=== PATIENT | female | born 2000 | race Caucasian/White ===

== ENCOUNTER → 2021-08-17 14:46 | Outpatient (CLI) | payer SELFPAY ==
[2021-08-17 15:20] LABS: Color, Urine Yellow (Yellow); Glucose, Dipstick Normal (Normal); Ketone-Dipstick Negative (Negative); Leukocyte Esterase-Dipstick 500 /ul (Negative); Nitrite-Dipstick Negative (Negative); Occult Blood-Urine Negative /ul (Negative); Protein-Dipstick Negative (Negative); Urine Bilirubin Dipstick Negative (Negative); Urine Clarity Sl. Cloudy (Clear); Urine Urobilinogen Normal (Normal)
[2021-08-17 15:31] LABS: Absolute Lymphocyte Count 1.97 X10^3/uL (0.83-4.51); Basophil# 0.03 X10^3/uL; Basophil% 0.3 % (0-1); Eosinophil# 0.06 X10^3/uL; Eosinophils% 0.6 % (0-5); Hematocrit 35.1 % (37-47); Lymphocyte # 1.97 X10^3/ul (0.83-4.51); Lymphocyte % 20.1 % (19-41); Mean Corp Hgb Conc 34.2 g/dL (32-36); Mean Corpuscular Hgb 30.4 pg (27.0-32.0); Mean Corpuscular Volume 88.9 fL (81-99); Mean Platelet Vol. 10.6 fl (6.2-12.0); Monocyte% 7.2 % (0-10); NRBC Flagged by Analyzer 0 % (0-5); Neutrophil # 6.96 X10^3/uL (2.7-7.7); Neutrophil % 71.2 % (47-70); Platelet Count 233 K/mm3 (150-450); RBC Distribution Width CV 12.9 % (11.6-14.6); RBC Distribution Width SD 42.4 fl (35.1-43.9); Red Blood Count 3.95 M/mm3 (4.2-5.4); White Blood Count 9.8 K/mm3 (4.4-11.0)
[2021-08-17 15:48] LABS: Thyroid Stim Hormone (TSH) 1.58 uIU/mL (0.358-3.74)
[2021-08-17 16:26] LABS: Amphetamine Urine VISTA NEGATIVE (<1000 ng/mL); Barbiturate Urine VISTA NEGATIVE (< 200 ng/mL); Benzodiazepine Urine VISTA NEGATIVE (< 200 ng/mL); Cocaine Urine VISTA NEGATIVE (< 300 ng/mL); Ecstacy Urine VISTA NEGATIVE (< 500 ng/mL); Methadone Urine VISTA NEGATIVE (< 300 ng/mL); PCP Urine VISTA NEGATIVE (< 25 ng/mL); THC Urine VISTA NEGATIVE (< 50 ng/mL); Vista UDS pH Range 7
[2021-08-20 09:34] LABS: HIV - WCH Non-Reactive (Nonreactive); Hepatitis B Surface Antigen Non-Reactive (Nonreactive); Hepatitis C Antibody Non-Reactive (Nonreactive); Rubella IgG Reactive (Nonreactive); Syphilis Antibodies Non-reactive
[2021-08-21 00:06] LABS: Chlamydia By Nucleic Acid AMP Negative (Negative)
[2021-08-21 00:41] LABS: Gonococcus By Nucleic Acid AMP Negative (Negative)
[2021-08-23 14:16] LABS: HPV Reflexed? NOT INDICATED
== END ==
PROVIDERS: Visit Provider Obstetrics & Gynecology
DX: Z34.82 Encounter for supervision of other normal pregnancy, second trimester (principal); Z12.4 Encounter for screening for malignant neoplasm of cervix; Z11.3 Encounter for screening for infections with a predominantly sexual mode of transmission
CPT/HCPCS: 36415; 80307; 81002; 84443; 85025; 86703; 86762; 86780; 86803; 87086; 87088; 87340; 87491; 87591; 88175; G0145

== ENCOUNTER → 2021-10-15 10:09 | Outpatient (CLI) | payer SELFPAY ==
[2021-10-15 10:30] LABS: Hematocrit 33.5 % (37-47); Hemoglobin 11.4 g/dL (12.0-15.0); Mean Corpuscular Hgb 31.4 pg (27.0-32.0); Mean Corpuscular Volume 92.3 fL (81-99); Mean Platelet Vol. 9.8 fl (6.2-12.0); Platelet Count 244 K/mm3 (150-450); RBC Distribution Width CV 13.6 % (11.6-14.6); RBC Distribution Width SD 45.6 fl (35.1-43.9); Red Blood Count 3.63 M/mm3 (4.2-5.4)
[2021-10-15 10:55] LABS: Glucose Challenge Gest 1H 50g 137 mg/dL (70-140)
== END ==
PROVIDERS: Visit Provider Obstetrics & Gynecology
DX: Z34.82 Encounter for supervision of other normal pregnancy, second trimester (principal)
CPT/HCPCS: 36415; 82950; 85027

== ENCOUNTER → 2021-11-05 11:40 | Outpatient (CLI) | payer SELFPAY | PROVIDERS: Visit Provider Obstetrics & Gynecology | DX: Z34.83 Encounter for supervision of other normal pregnancy, third trimester (principal) | CPT/HCPCS: 36415; 86850 ==

== ENCOUNTER 2021-12-27 13:22 | Outpatient (CLI) | payer SELFPAY | END 2021-12-27 23:59 | disposition home or self-care (01) | LOC: LABSPEC 13:22 | PROVIDERS: Visit Provider Obstetrics & Gynecology | DX: Z36.85 Encounter for antenatal screening for Streptococcus B (principal) | CPT/HCPCS: 87081 ==

== ENCOUNTER 2022-01-26 09:10 | Outpatient (CLI) | payer SELFPAY ==
[2022-01-26 09:31] VITALS: BP 114/61; PULSE 104; PULSE 111; TEMP 37.4; O2SAT 95
[2022-01-26 09:59] VITALS: BMI 36.8
[2022-01-26 13:20] VITALS: TEMP 37.3
[2022-01-26 13:21] VITALS: BP 108/65; PULSE 80
--- NOTE | 2022-01-27 11:35 | PCM.PN.BLA ---
Progress Note HPI: 21-year-old at 40/4 weeks, PETER 01/22/2022 by LMP, presenting for spotting with wiping and contractions. Contractions irregular, not increasing in intensity. Reports normal movement. Denies headache, vision changes, chest pain or shortness of breath, fevers or chills, nausea or vomiting. complicated by: None MANAGER TALENT MANAGEMENT history: G1 current Medical history: Denies Surgical history: Denies Social history: Denies tobacco, alcohol, drug use Family history: Noncontributory Allergies: No known drug allergies Medications: vitamin Review of systems: Negative otherwise stated above Physical exam: Blood pressure 108/65, pulse 80 General: Patient in bed resting in no acute distress HEENT: Normocephalic/atraumatic Cardiorespiratory: No increased effort Abdomen: Soft, nontender, gravid Extremities: Minimal edema Cervical exam: 2 cm changed to 2.5 cm discharge, scant blood on glove nothing in bed heart rate:130/mod irina/+accel/no decel [place]: q2-10 min panel A neg Rubella immune Syphilis nonreactive HIV nonreactive Hep B/hep C negative/negative Gonorrhea/chlamydia negative/negative Group beta strep negative on 12/27/2021 Assessment/plan: 21-year-old G1 at 40/4 weeks presenting with contractions and spotting. Patient not in labor after 4 hours into repeat cervical exams. status reassuring. Spotting secondary to early labor and cervical change. As status was stable during monitoring, patient was discharged home with labor precautions. Patient to return for increased bleeding, increased intensity of contractions, leaking of fluid, decreased movement. She has induction of labor scheduled this week.
== END 2022-01-26 23:59 | disposition home or self-care (01) ==
LOC: WPOUT 09:17 → WP 09:18
PROVIDERS: Referring Provider Student in an Organized Health Care Education/Training Program; Visit Provider Student in an Organized Health Care Education/Training Program
DX: O26.853 Spotting complicating pregnancy, third trimester (principal); Z3A.40 40 weeks gestation of pregnancy
CPT/HCPCS: 59025; 59050; 99218; G0378

== ENCOUNTER 2022-01-27 21:30 | Inpatient (IN) | payer SELFPAY, OTHER ==
[2022-01-27 21:09] VITALS: BMI 36.8
[2022-01-27 21:19] VITALS: O2SAT 96
[2022-01-27 21:20] VITALS: BP 116/68; PULSE 114; TEMP 36.5; O2SAT 96
[2022-01-27] MEDS: Lactated Ringers 1,000 ML 50 ML IV (22:00)
[2022-01-27 22:14] LABS: Absolute Lymphocyte Count 2.18 X10^3/uL (0.83-4.51); Absolute Neutrophil Count 9.5 X10^3/uL (2.0-7.7); Basophil# 0.02 X10^3/uL; Basophil% 0.2 % (0-1); Eosinophil# 0.04 X10^3/uL; Eosinophils% 0.3 % (0-5); Hematocrit 36.1 % (37-47); Hemoglobin 12.5 g/dL (12.0-15.0); Lymphocyte # 2.18 X10^3/ul (0.83-4.51); Mean Corp Hgb Conc 34.6 g/dL (32-36); Mean Corpuscular Hgb 30.9 pg (27.0-32.0); Mean Corpuscular Volume 89.1 fL (81-99); Mean Platelet Vol. 10.8 fl (6.2-12.0); Monocyte# 1.03 X10^3/uL; NRBC Flagged by Analyzer 0 % (0-5); Neutrophil # 9.48 X10^3/uL (2.7-7.7); Platelet Count 203 K/mm3 (150-450); RBC Distribution Width CV 13.6 % (11.6-14.6); RBC Distribution Width SD 44.7 fl (35.1-43.9); Red Blood Count 4.05 M/mm3 (4.2-5.4); White Blood Count 12.8 K/mm3 (4.4-11.0)
[2022-01-27 22:16] VITALS: BP 117/70; PULSE 96; PULSE 97; TEMP 36.7; O2SAT 96
--- NOTE | 2022-01-27 22:35 | HP.PCM.OB_ITS ---
History and Physical Date of Admission: 01/27/22 HPI: 21-year-old at 40/5 weeks, PETER 01/22/2022 by LMP, presenting with contractions. Contractions worsening and more consistent. Denies leaking of fluid, vaginal bleedings. Reports movement. Denies headache, vision changes, chest pain or shortness of breath, nausea or vomiting, fevers or chills, diarrhea or constipation. complicated by: None ENTERPRISE ANALYST history: G1 current Medical history: Denies Surgical history: Denies Social history: Denies tobacco, alcohol, drug use Family history: Noncontributory Allergies: No known drug allergies Medications: vitamin Review of systems: Negative otherwise stated above Physical exam: Blood pressure 117/70, HR 96, T 98.1F, O2 sat 96%on RA General: Patient in bed resting in no acute distress HEENT: Normocephalic/atraumatic Cardiorespiratory: No increased effort, RRR. CTAB Abdomen: Soft, nontender, gravid Extremities: Minimal edema Musculoskeletal: Strength 5/5 throughout all extremities Neurologic: No focal deficits, cranial nerves II through XII grossly intact Cervical exam: 5 cm, AROM meconium heart rate:145/mod irina/+accel/no decel [place]: q3 panel A neg Rubella immune Syphilis nonreactive HIV nonreactive Hep B/hep C negative/negative Gonorrhea/chlamydia negative/negative Group beta strep negative on 12/27/2021 CBC, T&S, COVID pending Assessment/plan: 21-year-old at 40/5 weeks, PETER 01/22/2022 by LMP, admitted in labor. Uncomplicated . -Admit to labor and delivery -Routine orders -Meconium fluid. Plan for strategic accounts manager at delivery. -GBS negative -Expectant management
--- NOTE | 2022-01-27 22:40 | NURSING ---
dr mccloud requesting pt be on continuous electronic monitoring throughout labor d/t mec fluid with AROM.
[2022-01-27 23:46] VITALS: BP 107/55; PULSE 116; TEMP 36.6; O2SAT 97
[2022-01-28] VITALS (79 sets, daily range): BP systolic 91–191; BP diastolic 48–114; PULSE 81–163; RESP 18; TEMP 36.1–37.8; O2SAT 82–100
[2022-01-28] MEDS: Lactated Ringers 500 ML 999 ML IV ×3 (01:31→07:49)
[2022-01-28] MEDS: Lactated Ringers 1,000 ML 200 ML IV ×3 (03:40→13:49)
[2022-01-28] MEDS: Oxytocin 30 units/NS 500 ml 30 UNITS/500 ML IV.SOLN IV (06:29)
[2022-01-28] MEDS: fentaNYL-bupivacaine (epidural) 100 ML BAG EPIDURAL ×4 (07:05→12:15)
[2022-01-28] MEDS: Amnioinfusion- 0.9% NS 1,000 ML IV.SOLN. 1000 ML INTRA-UTER (08:27)
--- NOTE | 2022-01-28 11:27 | PCM.PN.BLA ---
Progress Note Late entry - Called to assess around 0400. CE 6-7/80/-1. Continued expectant management at that time. Pt did get epidural and pitocin started this morning. FSE and IUPC placed, amnioinfusion started by Dr. Axel Garcia covering 940-130 this morning for cat II tracing. CE now 9.5/90/0. Cervix very thin and on right side, decreased with bearing down efforts during contractions. Will recheck in 30 minutes. Cat II. Patient continues to make cervical change.
[2022-01-28] MEDS: Oxytocin 30 units/NS 500 ml 30 UNITS/500 ML IV.SOLN 334 UNITS IV (14:53)
--- NOTE | 2022-01-28 15:10 | EX.PCM.OBRPT ---
Maternal Data Information Final PETER: 01/22/22 Vaginal Delivery Operative Information Date of Procedure: 01/28/22 Pre-Operative Diagnosis: Alvarado intrauterine at term Post-Operative Diagnosis: Alvarado intrauterine at term Surgery / Procedure Performed: Vacuum Assisted Vaginal Delivery Type of Anesthesia: Epidural Estimated Blood Loss: 500cc Findings Description of Procedure: Indications/risk/benefits: Vacuum-assisted vaginal delivery for maternal exhaustion category 2 tracing. Patient admitted in active labor, artificial rupture of membranes with meconium fluid, patient progressed through labor to 10 cm. Maternal exhaustion noted along with category 2 tracing. Therefore decision for vacuum-assisted vaginal delivery was made to expedite delivery. Patient had adequate anesthesia with epidural. Bladder was drained with Aguayo catheter. head position confirmed KERI +2 station. All risk, benefits, alternatives discussed with patient. Risks include but are not limited to: Risk of maternal laceration, scalp abrasion, cephalohematoma, subgaleal hemorrhage, risk of shoulder dystocia. All questions answered. Patient consented. Operative note: head position confirmed. Vacuum placed 2 cm anterior to the posterior fontanelle. No maternal tissue in the vacuum. Vacuum utilized with good maternal effort, descent was noted with pushing. 1 pop-off. Once vacuum removed. head delivered via maternal efforts. No nuchal cord. Delivery of the body. Baby to maternal chest. Cord clamped and cut. Awaiting turpentine distiller and NICU staff present for vacuum delivery meconium. Second-degree laceration repaired in usual fashion. Right labial laceration repaired in usual fashion. Hemostatic. Left labial abrasion hemostatic without intervention. Spontaneous delivery of placenta. Infant A Gender: Male (1 minute): 8 (5 minute): 9
--- NOTE | 2022-01-28 17:18 | NURSING ---
Epidural cath removed, blue tip intact
[2022-01-28] MEDS: Ibuprofen 600 MG Tablet PO (22:27)
[2022-01-29] VITALS: BP 98/41; PULSE 101; RESP 18; TEMP 36.2; O2SAT 94
[2022-01-29 03:56] VITALS: BP 97/44; PULSE 93; RESP 16; TEMP 36.4; O2SAT 97
[2022-01-29 08:37] VITALS: BP 98/53; PULSE 79; RESP 16; TEMP 36.4; O2SAT 97
--- NOTE | 2022-01-29 08:45 | PCM.PN.OB ---
Subjective Subjective She is sore today, but overall pain controlled. OOB, ambulating without difficulty. No issues voiding. is nursing well. Denies heavy lochia. Requests discharge to home today. Objective Data Objective Data Vital Signs: Vital Signs Temp Pulse Resp BP Pulse Ox 97.5 F L 79 16 98/53 L 97 01/29/22 08:37 01/29/22 08:37 01/29/22 08:37 01/29/22 08:37 01/29/22 08:37 Oxygen Delivery Method Room Air Weight: 88.4 kg Body Mass Index (BMI) 36.8 Intake & Output: Intake and Output for Last 24 Hours 01/27/22 01/28/22 01/29/22 23:59 23:59 23:59 Intake Total 5690.30 / 5690.30 Output Total 3800 / 3800 800 / 800 Balance 1890.30 / 1890.30 -800 / -800 Lab / Micro Data Result Diagrams: 01/27/22 22:00 Labs: Laboratory Results - last 24 hr 01/28/22 16:20: Screen NEGATIVE, Baby's Blood Type A NEGATIVE, Baby's NOLAN NEGATIVE Micro: Microbiology 01/27/22 22:00 Nasal Secretion SARS-CoV-2 Antigen (Rapid) - Final Physical Exam Const alert, oriented x3 and no apparent distress Resp normal respiratory effort and normal air movement Cardio regular rate, regular rhythm, S1 normal heart sound and S2 normal heart sound Uterus Palpation: uterus fundus firm and other OB fundus nontender Extremity no calf tenderness Extremity Narrative: no LE edema Neuro oriented x3 Assessment & Plan (1) Vaginal delivery: PLAN: PPD#1 s/p VAVD doing well A negative - O positive - pt post Rhogam 01/28/22 Routine care May d/c this afternoon if clear for discharge
--- NOTE | 2022-01-29 08:49 | PCM.DC ---
Discharge Instructions Diet Discharge Diet: No restrictions Activity Discharge Activity: Return to Normal Activity, May Shower and May Take a Tub Bath May resume sexual activity in: 4-6 weeks Lifting Restrictions: 10lb Dressing / Incision Call your doctor if you observe: Fever of 101 or Higher, Using more than 1 pad per hour, Shortness of breath, Chest pain, Calf discomfort, Uncontrolled pain and - (Persistent or severe headache) Follow Up Care Please Follow Up With: Priya Li DO When: 3 weeks for telehealth follow up 6 weeks for visit Test Results: Test results from this visit will be discussed in further detail at your follow-up appointment, if applicable. Discharge Plan Admission Admit Date/Time: 01/27/22 21:30 Primary Reason for Your Visit: Vaginal delivery Attending Provider: Priya Li Discharge Orders/Prescriptions Prescriptions: New ibuprofen 600 mg Tablet 600 mg PO Q8H PRN PRN (Reason: Pain Score 1-3) Qty: 30 RF: 0 Continued Prenatabs FA 29-1 mg Tablet 1 tab PO DAILY RF: 0 Disposition Disposition (needs filled in before D/C Order can be placed): Home, Self Care
--- NOTE | 2022-01-29 11:04 | CASEMGMT ---
Social Work Consulting with charge nurse, Noman Ricks. Referral for social work due to no electricity. Per Noman Ricks and chart review patient is [place] and it would be anticipated that patient does not have electricity. Noman Ricks checking with patient and confirms no needs/concerns on returning to home. Social work assessment not to be completed due to above. Jovanna Ramirez TOOL CRIB ATTENDANT, MATERIAL LISTER-S
[2022-01-29 12:00] VITALS: BP 91/46; PULSE 102; RESP 22; TEMP 36.7
--- NOTE | 2022-01-29 16:44 | CASEMGMT ---
Social Work Assessment Labor and Delivery Unit Date of Referral: 01/29/2022 Time of Referral: 13:50 Referred By: Dr. Priya Li Date of Intervention: 01/29/2022 Time of Intervention: 16:44 Reason for Referral: Mother of baby (MOB) triggered PHQ2 assessment. History obtained from: MOB, chart, nursing staff. Household composition: MOB, Father of baby, Toan Worthington and now this infant. Housing is adequate per MOB?s report. Patient's parent/guardian status: MOB and FOB have been since March 2021. was planned and accepted. This is first for both MOB and FOB. Medical History: history prior to this . MOB with vaginal delivery at 40 weeks. , Dayday Worthington born on 01/28/2023 with apgars of 8 and 9 at 1min and 5min. to follow with local PCP, Dr. Li for care in the community. MOB plans to breast feed infant and ?this is going well.? Educational Status: MOB denies issues or concerns with comprehension or understanding. Financial Status: MOB denies financial concerns. FOB works for [email or web address]. Infant Supplies: MOB reports to have all needed including a car seat and crib. Childcare/Caregiver(s): MOB plans to be primary caregiver for infant and plans to be a homemaker. Transportation: MOB denies issues or concerns with transportation. Programs/Agencies Involved: No active community programs/agencies. Children Services/Legal Issues: Denies history of children services or legal issues/concerns. Mental Health History: MOB denies history of mental health. MOB reports to have been feeling down over the past two weeks but to ?now feel better.? MOB reports to have had a harder time towards the end of the . This child protective services social worker able to facilitate conversation with MOB about depression and anxiety signs and symptoms. MOB reports to have needed support in the community and to feel that patient will reach out to family and FOB if MOB needs someone to talk to. MOB denies suicidal thoughts, plans, or intents. Substance Use History: Denies PHQ9: MOB with 12/13 when completed PHQ-9. MOB reports that reported symptoms have now been resolved. Family/Social Stressors: MOB denies concerns. Support Systems: MOB reports to have support from FOB and family. Depression and Anxiety/Shaken Baby/Safe Sleeping: This child protective services social worker provided MOB with information on depression and anxiety as well as safe sleeping, shaken baby, and [facility] local resources. ASSESSMENT: Met with MOB, FOB and infant in room. Introduced self and child protective services social worker role. MOB agreeable to speak with this child protective services social worker and provided verbal permission for this child protective services social worker to speak openly with FOB present. MOB with no concerns on return to community. MOB with pleasant and engaged affect. MOB states to have needed support. MOB reports to have a connection with . FOB holding throughout conversation and supporting infant appropriately. Active support and listening provided. PLAN: Infant to discharge to home with MOB and FOB. No other services requested or indicated. Jovanna Ramirez MSW, NICK-S
[2022-01-29 17:00] VITALS: BP 106/48; PULSE 66; RESP 16; TEMP 36.3
== END 2022-01-29 17:30 | disposition home or self-care (01) | DRG 807 ==
LOC: WPOUT 21:33 → WP 21:33
PROVIDERS: Admitting Provider Student in an Organized Health Care Education/Training Program; Referring Provider Student in an Organized Health Care Education/Training Program; Visit Provider Student in an Organized Health Care Education/Training Program
DX: O75.81 Maternal exhaustion complicating labor and delivery (principal); Z37.0 Single live birth; O77.0 Labor and delivery complicated by meconium in amniotic fluid; O70.1 Second degree perineal laceration during delivery; Z3A.40 40 weeks gestation of pregnancy; Z87.891 Personal history of nicotine dependence
CPT/HCPCS: 59025; 59050; 85025; 85461; 86850; 86900; 86901; 87426; 90384; 99218; J7030; J7120; G0378; J2790